=== PATIENT | female | born 1980 | race Caucasian/White ===

== ENCOUNTER 2024-11-08 10:09 | Emergency (ER) | payer MEDICAID, SELFPAY ==
[2024-11-08] VITALS (17 sets, daily range): BP systolic 110–140; BP diastolic 58–96; PULSE 57–90; RESP 9–20; TEMP 36.7; O2SAT 92–100
--- NOTE | 2024-11-08 10:00 | RT.EKG_ITS ---
APPROVED REPORT Exam: Resting ECG Reason for Exam: chest pain Patient Location: E HR:89 bpm ECG Measurements Heart Rate 89 AXIS ME 138 P 74 QRSd 95 QRS 61 QT 343 T 39 QTc 418 Conclusion Sinus rhythm...normal P axis, V-rate 60- 99 No Occlusion IA
--- NOTE | 2024-11-08 10:30 | DI.RAD_ITS ---
Exam(s) XR CHEST 2V PA LATERAL EXAM: XR CHEST 2V PA LATERAL CLINICAL HISTORY: chest pain TECHNIQUE: 2D digital imaging was performed. Two views. COMPARISON: No exams were available for comparison FINDINGS: HEART: Normal size. Aorta: Not dilated. PULMONARY VASCULATURE: Normal. MEDIASTINUM: Unremarkable. LUNGS: Clear. PLEURAL SPACE: No pleural effusion or pneumothorax. BONE:Unremarkable for age. SOFT TISSUES: Unremarkable. IMPRESSION: No acute abnormality. The preliminary [facility] report was reviewed. DATA REPOSITORY: RADIATION DOSE DELIVERED:
[2024-11-08 10:54] LABS: Abs Immature Grans 0.01 10^3/uL (0.0-0.06); HCT 39.3 % (36.0-46.0); HGB 12.6 g/dL (11.2-15.7); Immature Grans % 0.1 %; MCH 26.9 pg (27.0-33.0); MCHC 32.1 % (32.0-36.0); MCV 84 fL (80-95); MPV 10.4 fL (8.0-11.0); Platelet Count 284 10^3/uL (130-400); RBC 4.68 10^6/uL (3.93-5.22); RDW 15.4 % (11.7-14.6); RDW-SD 46.9 fL; WBC 7.46 10^3/uL (4.4-10.8)
[2024-11-08 11:14] LABS: ALT 10 U/L (14-59); AST 10 U/L (15-37); Albumin 4.1 g/dL (3.4-5.0); Alkaline Phosphatase 63 U/L (46-116); Anion Gap 9.9 mmol/L (3-11); BUN 5 mg/dL (7-18); Bilirubin, Total 0.4 mg/dL (0.2-1.0); CO2 26.1 mmol/L (21.0-32.0); Calcium 9.0 mg/dL (8.5-10.1); Chloride 106 mmol/L (98-107); Estimated GFR 93.12 (mL/min/1.73m2); Glucose 110 mg/dL (74-106); Lipase 21 U/L (<78); Potassium 3.9 mmol/L (3.5-5.1); Sodium 142 mmol/L (136-145); Total Protein 7.3 g/dL (6.4-8.2)
[2024-11-08 11:18] LABS: Troponin I < 4 ng/L (<or=51)
--- NOTE | 2024-11-08 11:30 | ED.GENADUL_ITS ---
Discharge Plan Disposition Patient Disposition: Home Condition: Stable Discharge Details Clinical Impression: Chest pain of uncertain etiology Primary Care Provider: None,None ED Provider: Jonathan Leos Home Meds and New Rx's Prescriptions: No Action No Known Home Meds Discharge Instructions Instructions: Chest Pain, Adult ED Additional Instructions: You were seen in the emergency department for chest pain of uncertain cause, you could have longstanding scarring from smoking, this could be pulled muscles in between your ribs which is common you could also have something called pleurisy due to your long-term smoking history due to general inflammation of the lungs. Your right side of your neck has a mildly swollen lymph node but this is not of any emergent concern, please use warm salt water gargles for any throat discomfort and teaspoons of honey can help with pain with swallowing. Please take regular dose of Tylenol and ibuprofen and placed on the list for establishing a primary care provider, please do not hesitate to return for any emergent concern. Referrals: [facility] [Provider Group] [facility] [Provider Group] Discharge Data Discharge Date/Time-TO BE ENTERED AT DEPARTURE: 11/08/24 12:04 HPI General Date/Time Provider Initiated Documentation: 11/08/24 10:24 . HPI Narrative: 44 year-old female presents to ED today by POV/ambulating with her spouse with a chief complaint of chest pain- R throat pain with a swollen area under her mandible not observable in general impression, with onset for 3 weeks, had some coughing in longstanding tobacco use. Quality described as feels like something is growing in her chest, no radiation to syncope, dizziness, worse pain with exertion, fever, vomiting, endorses intermittent abdominal pain. Severity is described as 8/10. Palliating factors include nothing specific attempted. Provoking factors include nothing specific. Patient not anticoagulated. Related Data Home Medications ?Medication ?Instructions ?Recorded ?Confirmed Unknown [No Known Home Meds] 11/08/24 0 11/08/24 Allergies Allergy/AdvReac Type Severity Reaction Status Date / Time peanut Allergy Severe Anaphylaxis Verified 11/08/24 10:24 Penicillins Allergy Severe Unknown Verified 11/08/24 10:24 General Stated Complaint: Chest Pain BETSY: 3 Review of Systems All systems reviewed & are unremarkable except as noted in HPI and below Exam Narrative Exam Narrative: GENERAL APPEARANCE: Well-nourished, non-toxic, awake and alert, atraumatic, no acute distress. SKIN: Warm, pink, dry, intact, without rashes/lesions/ulcerations. HEAD: Normocephalic, atraumatic, normal hair distribution for gender/age. EYES: Normal conjunctiva, no exudates on lids/lashes. ENT: Nares patent, no circumoral cyanosis, no facial swelling, mild lymphadenopathy to the right submandibular area, no palpable stone, no tonsillar swelling or deviation, uvula midline NECK: Supple, trachea midline, painless cervical ROM. LUNGS/CHEST: Lungs CTA bilaterally, non-labored respirations, normal A/P diameter, symmetrical expansion, no chest wall deformity, mild tenderness to palpation to L ribs without crepitus HEART (CV/PV): Regular rate and rhythm without murmur, no peripheral edema, no JVD. ABDOMEN: Soft, non-distended, no guarding, no tenderness MSK: Normal ROM, no swelling/deformity to bilateral UEs or LEs, moving all extremities without weakness, no cyanosis, spine midline without tenderness, normal curvature. NEURO: Mental Status AAOx4 - alert to person, place, time, events No facial droop, no forehead involvement. Motor: No focal weakness - strength 5/5 in bilateral UEs and LEs, proximal and distal, symmetric. Sensory: sensation intact to light touch globally. Gait normal: patient ambulated without ataxia into ED room. PSYCH: euthymic, cooperative, pleasant, appropriate speech Course Vital Signs Vital signs: Vital Signs Temperature 36.7 C 11/08/24 10:18 Pulse 87 11/08/24 10:18 Respiratory Rate 20 11/08/24 10:18 Blood Pressure 140/82 11/08/24 10:18 Pulse Oximetry 98 11/08/24 10:18 Temperature 36.7 C 11/08/24 10:18 Temperature Source Oral 11/08/24 10:18 Pulse 64 11/08/24 11:19 Respiratory Rate 13 11/08/24 11:19 Blood Pressure 124/64 11/08/24 11:19 Blood Pressure Mean 84 11/08/24 11:19 Blood Pressure Position Sitting 11/08/24 10:18 Pulse Oximetry 92 11/08/24 11:19 Oxygen Delivery Method Room Air 11/08/24 11:19 Oxygen Flow Rate 0 11/08/24 11:19 Pain Level 8 11/08/24 10:18 Lab/Test Results Lab/Test Results: 11/08/24 10:20 Tonsil - Not Specified Group A Streptococcus Culture - Pending Laboratory Tests Range/Units 11/08/24 10:46 WBC (4.4-10.8) 10^3/uL 7.46 RBC (3.93-5.22) 10^6/uL 4.68 Hgb (11.2-15.7) g/dL 12.6 Hct (36.0-46.0) % 39.3 MCV (80-95) fL 84 MCH (27.0-33.0) pg 26.9 L MCHC (32.0-36.0) % 32.1 RDW (11.7-14.6) % 15.4 H Plt Count (130-400) 10^3/uL 284 MPV (8.0-11.0) fL 10.4 Immature Gran % % 0.1 Neutrophils % % 55.0 Lymphocytes % % 32.7 Monocytes % % 5.5 Eosinophils % % 5.6 Basophils % % 1.1 Nucleated RBC % (0.0-0.3) % 0.0 Absolute Neutrophils (1.2-6.7) 10^3/uL 4.10 Absolute Lymphocytes (1.2-3.4) 10^3/uL 2.44 Absolute Monocytes (0.1-0.8) 10^3/uL 0.41 Absolute Eosinophils (0.0-0.7) 10^3/uL 0.42 Absolute Basophils (0.0-0.2) 10^3/uL 0.08 VBG Lactate (<or=2.0) mmol/L 1.0 Sodium (136-145) mmol/L 142 Potassium (3.5-5.1) mmol/L 3.9 Chloride (98-107) mmol/L 106 Carbon Dioxide (21.0-32.0) mmol/L 26.1 Anion Gap (3-11) mmol/L 9.9 BUN (7-18) mg/dL 5 L Creatinine (0.55-1.02) mg/dL 0.8 Est GFR (CKD-EPI 2020) (mL/min/1.73m2) 93.12 Glucose (74-106) mg/dL 110 H Calcium (8.5-10.1) mg/dL 9.0 Total Bilirubin (0.2-1.0) mg/dL 0.4 AST (15-37) U/L 10 L ALT (14-59) U/L 10 L Alkaline Phosphatase (46-116) U/L 63 Troponin I (<or=51) ng/L < 4 Total Protein (6.4-8.2) g/dL 7.3 Albumin (3.4-5.0) g/dL 4.1 Lipase (<78) U/L 21 POC Strep Test-[facility](Rapid) Start: 11/08/24 10:31 Freq: .Rapid Strep Test Status: Active Protocol: Document 11/08/24 10:50 N[facility] (Rec: 11/08/24 10:50 N.[facility] [id number]) Strep test-[facility](Rapid)-POC POC-Strep test-[facility] ( Negative Rapid) POC-Strep test-[facility] (Rapid) Negative Medical Decision Making This dictation utilizes [id number] dictation software and may contain unedited grammatical errors. 44 year-old female presents to ED today by POV/ambulating with her spouse with a chief complaint of chest pain- R throat pain with a swollen area under her mandible not observable in general impression, with onset for 3 weeks, had some coughing in longstanding tobacco use. Quality described as feels like something is growing in her chest, no radiation to syncope, dizziness, worse pain with exertion, fever, vomiting, endorses intermittent abdominal pain. Severity is described as 8/10. Palliating factors include nothing specific attempted. Provoking factors include nothing specific. Patients' medical history: Denies major medical history. Family and social history: Heavy tobacco use longstanding, denies IVDU, denies family history of early cardiac disease. Pertinent exam findings / vital signs include very mild lymphadenopathy to the right submandibular area, no palpable stone, no tonsillar swelling or deviation, uvula midline, lungs CTA, has tenderness to palpation of the left mid ribs diffusely, benign abdomen, nontoxic and afebrile. Differential / pathologies of concern include costochondritis, pleurisy, pneumonia, pneumothorax, ACS less likely. PERC negative do not suspect PE Diagnostic studies of: - CBC, CMP, lactate, troponin, lipase, rapid strep, x-ray chest, EKG. - CBC is completely benign - Lactate negative - CMP is completely benign - Troponin negative - Lipase negative - X-ray chest shows no acute findings - Rapid strep negative - EKG shows sinus rhythm 89 bpm with P waves followed by narrow complex QRS, normal axis, good R wave progression, no ST changes of ischemia, normal QT QTc Interventions of: -1 g p.o. Tylenol, 10 mg p.o. Toradol. ED Course/Assessment/Plan: 44-year-old female presents with 3 weeks of chest pain some cough, shortness of breath, concerned that she has cancer with a single isolated very mildly swollen lymph no movable visible swelling on general impression, complaining of chest discomfort in the setting of longstanding tobacco use, negative cardiac workup, x-rays benign, rapid strep is negative, counseled the patient on possible costochondritis from her upper respiratory infection recently. Counseled on usi ng regular dose of Tylenol and ibuprofen and salt gargles for throat pain relief, placed on follow-up list to establish primary care, strict return criteria for any emergent concerns Findings not consistent with ACS, pneumothorax, PE, pancreatitis, deep space infection of the neck. Disposition of Chest Pain of Uncertain Etiology. Patient verbalized understanding of the plan and return to ED criteria and engaged in shared decision making. Medical Records Medical records reviewed: Yes I reviewed the patient's medical records. Imaging Data Radiologic Study: Attestation: I personally reviewed and interpreted this imaging study as follows: Imaging: X-Ray Radiologist's impression: Exam: XR Chest Exam date and time: 11/08/2024 10:57 AM Age: 44 years old Clinical indication: Other: Chest pain TECHNIQUE: Imaging protocol: Radiologic exam of the chest. Views: 2 views. COMPARISON: No relevant prior studies available. FINDINGS: Lungs: Unremarkable. No consolidation. Pleural spaces: Unremarkable. No pleural effusion. No pneumothorax. Heart/Mediastinum: Unremarkable. No cardiomegaly. Bones/joints: Unremarkable. IMPRESSION: No acute findings. Dictated and Authenticated by: Tremayne Urbano MD. Lab Data Lab results reviewed: Yes I reviewed the patient's lab results. Labs: 11/08/24 10:20 Tonsil - Not Specified Group A Streptococcus Culture - Pending Laboratory Tests Range/Units 11/08/24 10:46 WBC (4.4-10.8) 10^3/uL 7.46 RBC (3.93-5.22) 10^6/uL 4.68 Hgb (11.2-15.7) g/dL 12.6 Hct (36.0-46.0) % 39.3 MCV (80-95) fL 84 MCH (27.0-33.0) pg 26.9 L MCHC (32.0-36.0) % 32.1 RDW (11.7-14.6) % 15.4 H Plt Count (130-400) 10^3/uL 284 MPV (8.0-11.0) fL 10.4 Immature Gran % % 0.1 Neutrophils % % 55.0 Lymphocytes % % 32.7 Monocytes % % 5.5 Eosinophils % % 5.6 Basophils % % 1.1 Nucleated RBC % (0.0-0.3) % 0.0 Absolute Neutrophils (1.2-6.7) 10^3/uL 4.10 Absolute Lymphocytes (1.2-3.4) 10^3/uL 2.44 Absolute Monocytes (0.1-0.8) 10^3/uL 0.41 Absolute Eosinophils (0.0-0.7) 10^3/uL 0.42 Absolute Basophils (0.0-0.2) 10^3/uL 0.08 VBG Lactate (<or=2.0) mmol/L 1.0 Sodium (136-145) mmol/L 142 Potassium (3.5-5.1) mmol/L 3.9 Chloride (98-107) mmol/L 106 Carbon Dioxide (21.0-32.0) mmol/L 26.1 Anion Gap (3-11) mmol/L 9.9 BUN (7-18) mg/dL 5 L Creatinine (0.55-1.02) mg/dL 0.8 Est GFR (CKD-EPI 2020) (mL/min/1.73m2) 93.12 Glucose (74-106) mg/dL 110 H Calcium (8.5-10.1) mg/dL 9.0 Total Bilirubin (0.2-1.0) mg/dL 0.4 AST (15-37) U/L 10 L ALT (14-59) U/L 10 L Alkaline Phosphatase (46-116) U/L 63 Troponin I (<or=51) ng/L < 4 Total Protein (6.4-8.2) g/dL 7.3 Albumin (3.4-5.0) g/dL 4.1 Lipase (<78) U/L 21 PFSH All Active Problems (Updated 11/08/24 @ 11:32 by WILLIAM Lopez) Chest pain of uncertain etiology (Acute) Social History Smoking/Tobacco Use Status: Current every day Tobacco Type: cigarettes Years smoked: 20 Smoking risk assessment performed?: Yes Alcohol Intake: current Alcohol Intake frequency: holidays/special occasions only Alcohol type: beer Drug use: Occasionally Substance use type: marijuana Housing: other Do you feel safe at home: Yes Do you feel safe in your relationship?: Yes
[2024-11-08] MEDS: Ketorolac 10 MG TAB PO (11:42)
[2024-11-08] MEDS: Acetaminophen 500 MG TAB 1000 MG PO (11:42)
--- NOTE | 2024-11-08 12:08 | DI.[facility]_ITS ---
PROCEDURE INFORMATION: Exam: XR Chest Exam date and time: 11/08/2024 10:57 AM Age: 44 years old Clinical indication: Other: Chest pain TECHNIQUE: Imaging protocol: Radiologic exam of the chest. Views: 2 views. COMPARISON: No relevant prior studies available. FINDINGS: Lungs: Unremarkable. No consolidation. Pleural spaces: Unremarkable. No pleural effusion. No pneumothorax. Heart/Mediastinum: Unremarkable. No cardiomegaly. Bones/joints: Unremarkable. IMPRESSION: No acute findings. Dictated and Authenticated by: Tremayne Urbano MD. Orderin Dafne Castillo MD
== END 2024-11-08 12:04 | disposition home or self-care (01) ==
LOC: ER 11:44
PROVIDERS: Emergency Provider Physician Assistant
DX: R07.9 Chest pain, unspecified (principal); Z72.0 Tobacco use
CPT/HCPCS: 99283; 99284; 36415; 87880; 80053; 83690; 93005; 71046; 83605; 84484; 85025; 87081; 93010

== ENCOUNTER 2024-11-20 16:34 | Emergency (ER) | payer MEDICAID, SELFPAY ==
[2024-11-20 16:37] VITALS: BP 168/89; PULSE 80; RESP 18; TEMP 36.9; O2SAT 98
[2024-11-20 16:38] VITALS: BP 168/89; PULSE 80; RESP 18; TEMP 36.9; O2SAT 98
--- NOTE | 2024-11-20 16:52 | ED.GENADUL_ITS ---
Discharge Plan Disposition Patient Disposition: Home Condition: Stable Discharge Details Clinical Impression: Thrush Primary Care Provider: None,None ED Provider: Sarabjit Torres Home Meds and New Rx's Prescriptions: New nystatin 100,000 unit/mL suspension 5 ml PO Q6H 14 Days Qty: 280 0RF Rx Instructions: swish and swallow Discharge Instructions Additional Instructions: Take the nystatin as prescribed. Sometimes acid reflux can also cause issues like this so you can try taking a daily antacid such as omeprazole. Follow-up with your primary care provider especially if you are not improving and you should also have a recheck of your blood pressure. Return to the emergency department if you feel significant more ill or have high fevers HPI General Mode of arrival: ambulatory . Date/Time Provider Initiated Documentation: 11/20/24 16:36 . Limitations to Documentation: no limitations . Information obtained by: patient . History of Present Illness 44 year old F presents to the emergency department with the chief complaint of oral thrush, described as moderate, Patient started experiencing this week(s) (2) and it has been constant. No relieving factors improve symptom(s), No exacerbating factors reported . Patient notes no other symptoms.. Patient did receive the following treatments prior to arrival, none Related Data Home Medications ?Medication ?Instructions ?Recorded ?Confirmed nystatin 100,000 unit/mL oral 5 ml PO Q6H 14 days #280 mL 11/20/24 suspension Previous Rx's ?Medication ?Instructions ?Recorded nystatin 100,000 unit/mL oral 5 ml PO Q6H 14 days #280 mL 11/20/24 suspension Allergies Allergy/AdvReac Type Severity Reaction Status Date / Time peanut Allergy Severe Anaphylaxis Verified 11/08/24 10:24 Penicillins Allergy Severe Unknown Verified 11/08/24 10:24 General Stated Complaint: Sorethroat BETSY: 4 Review of Systems All systems reviewed & are unremarkable except as noted in HPI and below Constitutional Constitutional: Denies chills, Denies fever(s) and Denies weakness ENT Ears, Nose, Mouth, and Throat: Reports sore throat Respiratory Respiratory: Denies cough Gastrointestinal Gastrointestinal: Denies abdominal pain, Denies nausea and Denies vomiting Neurologic Neurologic: Denies weakness Exam Const General: no acute distress Orientation: alert HENMT Head: normal to inspection Ears: external ears normal, TM's normal bilaterally and EAC's normal General nose exam: external nose normal Mouth: moist mucous membranes Throat: uvula midline Eyes General: appearance normal, both eyes and all related structures Neck Neck: normal visual inspection Resp Effort & Inspection: normal respiratory effort and able to speak in complete sentences Cardio Rate: regular rate Skin General skin exam: no rashes or lesions noted Neuro General: patient alert and patient oriented x3 Extrem General: normal to inspection Psych Mental Status: mental status grossly normal Course Vital Signs Vital signs: Vital Signs Temperature 36.9 C 11/20/24 16:37 Pulse 80 11/20/24 16:37 Respiratory Rate 18 11/20/24 16:37 Blood Pressure 168/89 H 11/20/24 16:37 Pulse Oximetry 98 11/20/24 16:37 Temperature 36.9 C 11/20/24 16:38 Pulse 80 11/20/24 16:38 Respiratory Rate 18 11/20/24 16:38 Blood Pressure 168/89 H 11/20/24 16:38 Pulse Oximetry 98 11/20/24 16:38 Pain Level 5 11/20/24 16:38 Medical Decision Making 44-year-old female who denies any chronic medical problems, she does note that she does smoke but denies any IV drug use and denies any recent fevers comes in with several weeks of sore throat and mouth pain. She says that she will see white patches in the back of her throat. She no longer has her tonsils. She is well-appearing speaking full sentences. She has no drooling or stridor. Posterior pharynx is white patches and also has some on her tongue and an area where she had wiped away the white area has an erythematous base. No submandibular swelling, no restricted neck movements or pain over the hyoid. I suspect thrush and given her smoking history throat pain she could have esophagitis. I will start her on nystatin and she will follow-up with her PCP or express care if not improving and I also recommended a trial of a daily antacid. Return precautions given. She was advised her blood pressure was elevated and had no end organ damage symptoms. She was instructed to follow-up with a PCP for recheck of this. Differential Diagnosis Differential Diagnosis: thrush, esophagitis PFSH All Active Problems (Updated 11/20/24 @ 16:57 by Sarabjit Torres MD) Thrush (Acute) Chest pain of uncertain etiology (Acute) Social History Smoking/Tobacco Use Status: Current every day Tobacco Type: cigarettes Years smoked: 20 Smoking risk assessment performed?: Yes Alcohol Intake: current Alcohol Intake frequency: holidays/special occasions only Alcohol type: beer Drug use: Occasionally Substance use type: marijuana Housing: other Do you feel safe at home: Yes Do you feel safe in your relationship?: Yes
== END 2024-11-20 17:50 | disposition home or self-care (01) ==
PROVIDERS: Emergency Provider Emergency Medicine
DX: B37.0 Candidal stomatitis (principal)
CPT/HCPCS: 99283 ×2

== ENCOUNTER 2024-12-10 11:05 | Outpatient (REF) | payer MEDICAID, SELFPAY ==
[2024-12-10 15:23] LABS: Abs Immature Grans 0.00 10^3/uL (0.0-0.06); HCT 40.7 % (36.0-46.0); HGB 13.3 g/dL (11.2-15.7); Immature Grans % 0.0 %; MCH 28.1 pg (27.0-33.0); MCHC 32.7 % (32.0-36.0); MCV 86 fL (80-95); MPV 11.1 fL (8.0-11.0); Platelet Count 314 10^3/uL (130-400); RBC 4.73 10^6/uL (3.93-5.22); RDW 15.1 % (11.7-14.6); RDW-SD 47.9 fL; WBC 5.72 10^3/uL (4.4-10.8)
[2024-12-10 16:04] LABS: ALT 17 U/L (14-59); AST 13 U/L (15-37); Albumin 4.4 g/dL (3.4-5.0); Alkaline Phosphatase 59 U/L (46-116); Anion Gap 10.3 mmol/L (3-11); BUN 13 mg/dL (7-18); Bilirubin, Total 0.3 mg/dL (0.2-1.0); CO2 25.7 mmol/L (21.0-32.0); Calcium 9.2 mg/dL (8.5-10.1); Chloride 103 mmol/L (98-107); Estimated GFR 118.53 (mL/min/1.73m2); Glucose 94 mg/dL (74-106); Potassium 5.1 mmol/L (3.5-5.1); Sodium 139 mmol/L (136-145); Total Protein 7.8 g/dL (6.4-8.2)
[2024-12-11 09:53] LABS: HIV-1/2 Ag & Ab Screen Negative (Negative)
== END 2024-12-10 11:06 | disposition home or self-care (01) ==
LOC: LBN 11:05
PROVIDERS: Visit Provider Physician Assistant Medical
DX: B37.0 Candidal stomatitis (principal)
CPT/HCPCS: 80053; 87389; 85025; 87070